=== PATIENT | female | born 1970 | race African-American/Black ===

== ENCOUNTER 2016-09-13 16:21 | Emergency (ER) | payer OTHER ==
[~2016-09-13] VITALS: Ht 160 cm; Wt 66.7 kg
[2016-09-13 17:50] LABS: BASOPHIL % 0.6 % (0-2); PLATELET COUNT 256 x10^3mcL (130-400); RED CELL DISTRIBUTION WIDTH 12.5 % (11.5-14.5)
[2016-09-13 17:54] LABS: CALCIUM 8.8 mg/dL (8.5-10.1); CARBON DIOXIDE 27.3 mmol/L (21-32); CHLORIDE SERUM 106 mmol/L (98-107); CREATININE SERUM 0.7 mg/dL (0.6-1.0); GFR1 > 60 mL/min; GLUCOSE SERUM 88 mg/dL (74-106); SODIUM SERUM 140 mmol/L (136-145)
[2016-09-13 19:18] VITALS: BP 141/91
== END 2016-09-13 19:18 | disposition home or self-care (01) ==
LOC: ED 16:21
PROVIDERS: Emergency Medicine
DX: G44.209 Tension-type headache, unspecified, not intractable (principal); R04.0 Epistaxis
CPT/HCPCS: J1885

== ENCOUNTER 2018-12-10 12:06 | Emergency (ER) | payer OTHER ==
[~2018-12-10] VITALS: Ht 160 cm; Wt 71.7 kg
[2018-12-10 12:16] VITALS: Ht 160 cm; Wt 71.7 kg
[2018-12-10 16:36] VITALS: BP 158/90
== END 2018-12-10 16:36 | disposition home or self-care (01) ==
LOC: ED 12:06
DX: T78.40XA Allergy, unspecified, initial encounter (principal); R21 Rash and other nonspecific skin eruption; X58.XXXA Exposure to other specified factors, initial encounter; Z90.49 Acquired absence of other specified parts of digestive tract; Z90.710 Acquired absence of both cervix and uterus

== ENCOUNTER 2019-12-10 11:35 | Emergency (ER) | payer OTHER ==
[~2019-12-10] VITALS: Ht 160 cm; Wt 76.7 kg
[2019-12-10 11:47] VITALS: Ht 160 cm; Wt 76.7 kg
[2019-12-10 13:10] LABS: BASOPHIL % 0.7 % (0-2); PLATELET COUNT 271 x10^3mcL (130-400); RED CELL DISTRIBUTION WIDTH 13.4 % (11.5-14.5)
[2019-12-10 13:17] LABS: CALCIUM 9.4 mg/dL (8.5-10.1); CARBON DIOXIDE 24.9 mmol/L (21-32); CHLORIDE SERUM 103 mmol/L (98-107); CREATININE SERUM 0.7 mg/dL (0.6-1.0); GFR1 > 60 mL/min; GLUCOSE SERUM 92 mg/dL (74-106); POTASSIUM SERUM 4.8 mmol/L (3.5-5.1); SODIUM SERUM 139 mmol/L (136-145)
[2019-12-10 13:26] LABS: ALKALINE PHOSPHATASE 90 U/L (46-116); ALT/SGPT 38 U/L (14-59); AST/SGOT 58 U/L (15-37); BILIRUBIN TOTAL 0.58 mg/dL (0.20-1.00); LIPASE 93 IU/L (73-393)
[2019-12-10 13:27] LABS: TOTAL PROTEIN, SERUM 8.5 g/dL (6.4-8.2)
[2019-12-10 16:33] VITALS: BP 122/74
== END 2019-12-10 16:33 | disposition home or self-care (01) ==
LOC: ED 11:35
PROVIDERS: Emergency Medicine
DX: K52.9 Noninfective gastroenteritis and colitis, unspecified (principal); Z98.890 Other specified postprocedural states; Z90.89 Acquired absence of other organs
CPT/HCPCS: J1885; J2405